=== PATIENT | female | born 1995 | race Two or more races ===

== ENCOUNTER 2023-06-27 05:30 | Inpatient (IN) | payer MEDICAID, OTHER ==
[~2023-06-27] VITALS: Ht 167.6 cm; Wt 72.6 kg
[2023-06-27] MEDS ORDERED: LIDOCAINE 2%HCL (LOCAL ANESTH.) INJ 10ml MDV ONE (06:26)
[2023-06-27] MEDS ORDERED: LACT. RINGERS/OXYTOCIN 20UNITS 1,000 ML IV ONE (06:26)
[2023-06-27] MEDS ORDERED: PENICILLIN G POT 5MIL/D5 50ML 50 ML IV ONE ×2 (06:26→06:45)
[2023-06-27] MEDS ORDERED: WITCH HAZEL-GLYCERIN PAD TOP PRN (06:30)
[2023-06-27] MEDS ORDERED: DERMOPLAST 60ML BOTTLE TOP PRN (06:30)
[2023-06-27] MEDS ORDERED: LIDOCAINE 2%HCL (LOCAL ANESTH.) INJ 20ML MDV IJ PRN (06:30)
[2023-06-27] MEDS ORDERED: PHISODERM TOP SOLN 240ML BTL TOP PRN (06:30)
[2023-06-27] MEDS ORDERED: PROMETHAZINE HCL 25 MG/ML 1ML IV PRN (06:30)
[2023-06-27] MEDS ORDERED: LACTATED RINGER'S 1,000 ML IV SCH (06:30)
[2023-06-27] MEDS ORDERED: miSOPROStol 100 mcg TAB PR PRN (06:45)
[2023-06-27] MEDS ORDERED: METHYLERGONOVINE MALEATE 0.2 MG/ML AMP IM PRN (06:45)
[2023-06-27] MEDS ORDERED: miSOPROStol 100 mcg TAB SL PRN (06:45)
[2023-06-27] MEDS ORDERED: CARBOPROST TROMETHAMINE 250 MCG/1ML VIAL IM PRN (06:45)
[2023-06-27] MEDS ORDERED: LACT. RINGERS/OXYTOCIN 20UNITS 500 ML IV ONE ×2 (06:45→07:15)
[2023-06-27 07:03] LABS: Basophils # (auto) 0.1 10 ^3/uL (0-0.2); Basophils % (auto) 0.5 % (0.0-2.0); Eosinophils # (auto) 0 10 ^3/uL (0-0.8); Hematocrit 30.4 % (36.0-46.0); Hemoglobin 9.5 g/dL (12.2-16.2); Lymphocytes # (auto) 1.3 10 ^3/uL (0.4-5.4); Lymphocytes % (auto) 8.4 % (10.0-50.0); Mean Corpuscular Hemoglobin 23.7 pg (28.0-32.0); Mean Corpuscular Hgb Conc. 31.4 g/dL (32.0-36.0); Mean Corpuscular Volume 75.4 fL (80.0-100.0); Monocytes # (auto) 0.8 10 ^3/uL (0-1.3); Monocytes % (auto) 5.2 % (0.0-12.0); Neutrophils % (auto) 85.9 % (37.0-80.0); Red Blood Cells 4.03 10^6/uL (4.0-5.20); Red Cell Distribution Width 15.5 % (11.8-14.3); White Blood Cell 15.1 10^3/uL (4.4-10.8)
[2023-06-27] MEDS ORDERED: MINERAL OIL TOPICAL 10ml TOP PRN (07:15)
[2023-06-27 07:18] LABS: INR 0.89 (0.9-1.15); Partial Thromboplastin Time 20.9 SEC (24.5-34.5); Prothrombin Time 9.4 sec (9.3-11.8)
[2023-06-27 07:24] LABS: Alanine Aminotransferase 12 U/L (7-40); Alkaline Phosphatase 80 U/L (46-116); Anion Gap 12 (5-15); Aspartate Aminotransferase 19 U/L (13-40); BUN/Creatinine Ratio 11.9 (10.0-20.0); Blood Urea Nitrogen 7 mg/dL (9-23); Calcium 9.1 mg/dL (8.5-10.1); Carbon Dioxide 21 mmol/L (20-30); Chloride 103 mmol/L (98-107); Glucose 88 mg/dL (74-106); Potassium 3.6 mmol/L (3.5-5.1); Sodium 136 mmol/L (136-145)
[2023-06-27 07:25] LABS: Total Protein 6.9 g/dL (5.7-8.2)
[2023-06-27 07:42] LABS: Bilirubin, Total 0.8 mg/dL (0.2-1.0)
[2023-06-27 07:47] LABS: Urine Bacteria FEW /hpf (None Seen); Urine Blood TRACE /uL (Negative); Urine Budding Yeast MANY /hpf (None Seen); Urine Clarity HAZY (Clear); Urine Color Colorless (Yellow); Urine Protein, UAD Negative (Negative); Urine Specific Gravity 1.015 (1.001-1.035); Urine Urobilinogen Normal (Negative); Urine WBC 3 /hpf (0 - 5)
[2023-06-27 07:51] LABS: Amphetamine Screen, Urine Neg (NEGATIVE); Barbiturate Scree,Urine Neg (NEGATIVE); Benzodiazephine Screen, Urine Neg (NEGATIVE); Cannabinoid Screen, Urine Neg (NEGATIVE); Cocaine Screen, Urine Neg (NEGATIVE); Opiate Scree,Urine Neg (NEGATIVE); Phencyclidine Screen, Urine Neg (NEGATIVE)
[2023-06-27] MEDS ORDERED: DIPHENOXYLATE W/ATROPINE 2.5 MG TAB PO SCH (10:00)
[2023-06-27] MEDS ORDERED: PENICILLIN G POTASSIUM 2,500,000 UNITS in D5W 5% 50 ML IV SCH (10:45)
[2023-06-27] MEDS ORDERED: ONDANSETRON ODT 4 MG TAB PO PRN (11:00)
[2023-06-27] MEDS ORDERED: IBUPROFEN 600 MG TAB PO PRN (11:00)
[2023-06-27] MEDS ORDERED: ACETAMINOPHEN 325 MG TAB PO PRN (11:00)
[2023-06-27 15:06] VITALS: BP 108/59; PULSE 76; RESP 17; TEMP 98.4; O2SAT 98
[2023-06-27 19:00] VITALS: BP 93/61; PULSE 82; RESP 18; TEMP 99.5; O2SAT 96
[2023-06-27] MEDS ORDERED: DOCUSATE SOD 100 MG CAP PO SCH (22:00)
[2023-06-27 23:00] VITALS: BP 96/64; PULSE 78; RESP 18; TEMP 99; O2SAT 98
[2023-06-28 03:00] VITALS: BP 99/67; PULSE 68; RESP 18; TEMP 98; O2SAT 97
[2023-06-28 06:45] VITALS: BP 90/64; PULSE 76; RESP 16; TEMP 98; O2SAT 98
[2023-06-28 11:15] VITALS: BP 92/63; PULSE 72; RESP 16; TEMP 98.3; O2SAT 97
[2023-06-28 12:45] VITALS: BP 92/68; PULSE 72; RESP 18; TEMP 98; O2SAT 97
[2023-06-29 07:07] LABS: RPR Non Reactive (Non Reactive); Rubella Antibodies, IgG <0.90 index (Immune >0.99)
[2023-06-30 19:07] LABS: Treponema pallidum Ab (FTA-Ab) Non Reactive (Non Reactive)
== END 2023-06-28 12:42 | disposition home or self-care (01) | DRG 560 ==
LOC: LDRP 05:30 → UNDOADMOB 05:30 → INTOOBSV 06:13 → OBSVTOIN 06:13 → LDRP 06:35 → OBSVTOIN 06:35 → LDRP 06:59
PROVIDERS: ADMIT Obstetrics & Gynecology; ATTEND Obstetrics & Gynecology
PROC: 10E0XZZ Delivery of Products of Conception, External Approach (ICD-10-PCS; principal; 2023-06-27)
DX: O69.81X0 Labor and delivery complicated by cord around neck, without compression, not applicable or unspecified (principal); Z37.0 Single live birth; Z3A.38 38 weeks gestation of pregnancy
CPT/HCPCS: 36415; 59025; 59409; 76805; 80053; 80307; 81001; 85025; 85610; 85730; 86592; 86762; 86850; 86900; 86901; 94760; 96360; 96361; 96365; 96366; 96372; G0378; J2001; J2540; J2590; J7060